=== PATIENT | female | born 1970 | race Caucasian/White ===

== ENCOUNTER 2021-12-04 15:15 | Emergency (ER) | payer BC ==
[2021-12-04] MEDS ORDERED: Midazolam 1 MG/ML 2 ML SDV IVPUSH ONE (15:49)
[2021-12-04] MEDS ORDERED: OLANZapine 10 MG Vial IM ONE (15:49)
[2021-12-04 16:49] LABS: ACETAMINOPHEN 0 ug/mL (10-30)
[2021-12-04] MEDS ORDERED: Sodium Chloride 0.9% 1,000 ML IV ONE (16:53)
[2021-12-04] MEDS ORDERED: cefTRIAXone 1 GM in Sodium Chloride 0.9% 100 ML IV ONE (18:02)
[2021-12-04] MEDS ORDERED: Potassium Chloride 20 MEQ Tab.ER PO ONE (19:13)
== END 2021-12-04 21:10 | disposition home or self-care (01) ==
LOC: JD.ED 15:15
DX: N39.0 Urinary tract infection, site not specified (principal); D25.9 Leiomyoma of uterus, unspecified; F22 Delusional disorders; R44.0 Auditory hallucinations; Z20.822 Contact with and (suspected) exposure to COVID-19
CPT/HCPCS: 36415; 74176; 80053; 80143; 80179; 80306; 80307; 81001; 83605; 83735; 84443; 85025; 87040; 87086; 87635; 96361; 96365; 96372; 96375; 99284; A9270; J0696; J2250; J3490; J7030; U0002

== ENCOUNTER 2021-12-05 09:12 | Emergency (ER) | payer BC ==
[2021-12-05] MEDS ORDERED: Midazolam 5 MG/ML 10 ML MDV ONE (09:21)
[2021-12-05] MEDS ORDERED: Midazolam 5 MG/ML 10 ML MDV IV ONE (09:21)
[2021-12-05] MEDS ORDERED: Midazolam 1 MG/ML 5 ML SDV IM ONE (09:21)
[2021-12-05] MEDS ORDERED: OLANZapine 10 MG Vial IM ONE (09:21)
== END 2021-12-05 13:45 ==
LOC: JD.ED 09:12
DX: F22 Delusional disorders (principal); N39.0 Urinary tract infection, site not specified
CPT/HCPCS: 36415; 80053; 80143; 80179; 80306; 80307; 81001; 84443; 85025; 96372; 99285; J2250; J3490; 99284

== ENCOUNTER 2023-08-19 11:29 | Emergency (ER) | payer BC ==
[2023-08-19 12:27] LABS: BARBITURATE SCREEN,URINE NEGATIVE (CUTOFF=200); BENZODIAZEPINES SCREEN,URINE NEGATIVE (CUTOFF=150); BUPRENORPHINE SCREEN,URINE NEGATIVE (CUTOFF=10); METHADONE SCREEN, URINE NEGATIVE (CUTOFF=200); METHAMPHETAMINES SCREEN, URINE NEGATIVE (CUTOFF=500); OXYCODONE SCREEN,URINE NEGATIVE (CUT0FF=100); THC SCREEN,URINE 20 NG/ML NEGATIVE (CUTOFF=50)
[2023-08-19 12:27] LABS: BASOPHILS ABSOLUTE AUTO 0.1 K/mm3 (0.0-0.2); BASOPHILS PERCENT AUTO 1.1 % (0.0-1.0); EOSINOPHILS PERCENT AUTO 0.3 % (0.0-6.0); HEMATOCRIT 40.7 % (37.0-47.0); HEMOGLOBIN 13.6 gm/dl (12.0-16.0); IMMATURE GRAN ABSOLUTE AUTO 0.02 K/mm3 (0.00-0.05); IMMATURE GRAN PERCENT AUTO 0.3 % (0.0-0.4); LYMPHOCYTES ABSOLUTE AUTO 1.1 K/mm3 (1.0-4.8); MEAN CORPUSCULAR HGB CONC 33.4 g/dl (32.0-36.0); MEAN CORPUSCULAR VOLUME 83.7 fl (83.0-99.0); MEAN PLATELET VOLUME 10.7 fl (9.4-12.3); MONOCYTES ABSOLUTE AUTO 0.4 K/mm3 (0.0-0.8); NEUTROPHILS PERCENT AUTO 75.3 % (41.0-71.0); PLATELET COUNT,PLT 245 K/mm3 (150-400); RED BLOOD CELL COUNT 4.86 M/mm3 (4.10-5.30); WHITE BLOOD CELL COUNT,WBC 6.65 K/mm3 (3.9-11.3)
[2023-08-19 12:32] LABS: AMPHETAMINES SCREEN, URINE NEGATIVE (CUTOFF=500)
[2023-08-19 12:46] LABS: ALANINE AMINOTRANSFERASE,ALT 22 U/L (14-59); ALBUMIN 3.6 g/dl (3.4-5.0); ALKALINE PHOSPHATASE 94 U/L (46-116); ANION GAP 16.4 (5-15); ASPARTATE AMNIOTRANSFERASE,AST 19 U/L (15-37); BILIRUBIN TOTAL 0.5 mg/dL (0.2-1.0); BLOOD UREA NITROGEN,BUN 11 mg/dL (7-18); BUN/CREATININE RATIO 12.2 (14-18); CALCIUM 8.9 mg/dL (8.5-10.1); CARBON DIOXIDE,CO2 22 mEq/L (21-32); CHLORIDE,CL 108 mEq/L (98-107); CREATININE 0.9 mg/dL (0.55-1.02); ESTIMATED GFR 76 mL/min (>60); GLUCOSE RANDOM 112 mg/dL (70-99); POTASSIUM,K 3.4 mEq/L (3.5-5.1); PROTEIN TOTAL,TP 7.3 g/dl (6.4-8.2); SODIUM,NA 143 mEq/L (136-145); TSH 1.309 uIU/mL (0.358-3.74)
[2023-08-19 12:50] LABS: TROPONIN I HIGH SENSITIVITY < 4 pg/mL (<=51)
[2023-08-19 13:03] LABS: ACETAMINOPHEN 0 ug/mL (10-30)
== END 2023-08-19 16:04 | disposition home or self-care (01) ==
LOC: JD.ED 11:29
DX: R07.89 Other chest pain (principal); F22 Delusional disorders; F41.9 Anxiety disorder, unspecified; Z79.899 Other long term (current) drug therapy
CPT/HCPCS: 36415; 71045; 71045-26; 80053; 80143; 80179; 80306; 80307; 83735; 84443; 84484; 85025; 93005; 93010; 99284; 99285

== ENCOUNTER 2024-04-25 08:46 | Day surgery (SDC) | payer BC ==
[~2024-04-25 08:46] MED LIST: Lactated Ringers 1,000 ML IV SCH; Sodium Chloride 0.9% 10 ML Syringe FLUSH PRN; Sodium Chloride 0.9% 10 ML Syringe FLUSH SCH
[2024-04-25] MEDS ORDERED: Sodium Chloride 0.9% 10 ML Syringe FLUSH SCH (09:00)
[2024-04-25] MEDS ORDERED: Lidocaine 1% 5 ML VIAL ONE (09:07)
[2024-04-25] MEDS ORDERED: Ketamine 200 MG/20 ML MDV ONE (09:07)
[2024-04-25] MEDS ORDERED: Midazolam 1 MG/ML 2 ML SDV ONE (09:07)
[2024-04-25] MEDS ORDERED: Propofol 200 MG/20 ML SDV ONE ×2 (09:07→09:30)
[2024-04-25] MEDS ORDERED: fentaNYL 250 MCG/5 ML SDV ONE (09:07)
[2024-04-25] MEDS: Lactated Ringers 1,000 ML IV SCH (09:10)
[2024-04-25] MEDS ORDERED: ceFAZolin 2 GM Vial ONE (09:29)
[2024-04-25] MEDS ORDERED: Dexamethasone 4 MG/ML 5 ML MDV ONE (09:43)
[2024-04-25] MEDS ORDERED: Ondansetron 4 MG/2 ML SDV ONE (09:43)
[2024-04-25] MEDS: EPINEPHrine 1 MG/ML SDV ONE (09:57)
[2024-04-25] MEDS: Bupivacaine 0.25% 10 ML SDV ONE (10:10)
[2024-04-25] MEDS: fentaNYL 100 MCG/2 ML SDV IVPUSH PRN (10:35)
[2024-04-25] MEDS: HYDROmorphone 0.5 MG/0.5 ML Syringe IVPUSH PRN (11:01)
[2024-04-25] MEDS ORDERED: dexmedeTOMIDine HCl 200 MCG/2 ML SDV ONE (11:08)
[2024-04-25] MEDS: Ketorolac 30 MG/ML SDV IVPUSH ONE (11:22)
[2024-04-25] MEDS: Acetaminophen/HYDROcodone 325-5 MG Tab PO PRN (13:45)
== END 2024-04-25 14:10 | disposition home or self-care (01) ==
LOC: JD.SDS 08:46
PROVIDERS: ATTEND Orthopaedic Surgery
DX: S83.241A Other tear of medial meniscus, current injury, right knee, initial encounter (principal); M94.261 Chondromalacia, right knee; F41.9 Anxiety disorder, unspecified; F32.A Depression, unspecified; Z79.899 Other long term (current) drug therapy; X58.XXXA Exposure to other specified factors, initial encounter
CPT/HCPCS: 29881; A9270; J0171; J0665; J0690; J1100; J1171; J1885; J2250; J2405; J2704; J3010; J7120; 01400; J3490